=== PATIENT | female | born 1950 | race Caucasian/White ===

== ENCOUNTER → 2021-08-22 16:06 | Outpatient (BNVA) | payer BC, SELFPAY | PROVIDERS: Visit Provider Nurse Practitioner Family | DX: J45.901 Unspecified asthma with (acute) exacerbation (principal); R91.8 Other nonspecific abnormal finding of lung field | CPT/HCPCS: 71046 ==

== ENCOUNTER → 2024-01-08 09:51 | Outpatient (BNVA) | payer BC, SELFPAY | PROVIDERS: Visit Provider Student in an Organized Health Care Education/Training Program | DX: M79.641 Pain in right hand; M25.531 Pain in right wrist; M25.641 Stiffness of right hand, not elsewhere classified | CPT/HCPCS: 73110; 73130 ==

== ENCOUNTER 2024-01-16 11:36 | Outpatient (RCR) | payer MEDICARE, SELFPAY | END 2024-02-01 23:59 | disposition home or self-care (01) | LOC: SOT 11:36 | PROVIDERS: PCP Nurse Practitioner Family; Visit Provider Student in an Organized Health Care Education/Training Program | DX: M25.641 Stiffness of right hand, not elsewhere classified (principal) | CPT/HCPCS: 97110; 97165 ==